=== PATIENT | female | born 1945 | race Caucasian/White ===

== ENCOUNTER 2023-06-03 07:05 | Day surgery (SDC) | payer MEDICARE ==
[2023-05-26 15:31] LABS: BASOPHILS # (AUTO) 0.1 X10'3 (0-0.2); BASOPHILS % (AUTO) 0.8 % (0-1); EOSINOPHILS # (AUTO) 0.1 X10'3 (0-0.9); EOSINOPHILS % (AUTO) 0.9 % (0-6); LYMPHOCYTES # (AUTO) 2.1 X10'3 (1.1-4.8); LYMPHOCYTES % (AUTO) 22.4 % (21-51); MEAN CORPUSCULAR HEMOGLOBIN 32.6 PG (27.0-31.0); MEAN CORPUSCULAR HGB CONC 34.3 g/dL (33.0-36.5); MEAN CORPUSCULAR VOLUME 95.1 FL (78-98); MEAN PLATELET VOLUME 8.1 FL (7.4-10.4); MONOCYTES # (AUTO) 0.8 X10'3 (0-0.9); MONOCYTES % (AUTO) 7.9 % (2-12); NEUTROPHILS # (AUTO) 6.5 X10'3 (1.8-7.7); PRE OP HEMATOCRIT 41.8 % (35.0-45.0); PRE OP HEMOGLOBIN 14.3 g/dL (12.0-16.0); PRE OP PLATELET COUNT 218 X10'3 (140-440); PRE OP WHITE BLOOD COUNT 9.6 10'3 (4.8-10.8); RED BLOOD COUNT 4.39 X10'6 (4.20-5.60); RED CELL DISTRIBUTION WIDTH 13.4 % (11.5-14.5)
[2023-05-26 15:58] LABS: ALBUMIN 3.1 G/DL (3.4-5.0); ALBUMIN/GLOBULIN RATIO 0.6 (1.1-1.5); ALKALINE PHOSPHATASE 67 IU/L (46-116); BLOOD UREA NITROGEN 21 MG/DL (7-18); BUN/CREATININE RATIO 22.3 (10.0-20.0); CALCIUM 8.9 MG/DL (8.5-10.1); CHLORIDE 103 MMOL/L (99-107); CREATININE 0.94 MG/DL (0.40-0.90); PRE OP ALT 19 U/L (30-65); PRE OP ANION GAP 12 (8-16); PRE OP AST 20 U/L (10-37); PRE OP BILIRUB, TOTAL 0.4 MG/DL (0.0-1.0); PRE OP GLUCOSE 133 MG/DL (70-104); PRE OP POTASSIUM 3.6 MMOL/L (3.4-5.1); PRE OP SODIUM 137 MMOL/L (135-145); TOTAL CARBON DIOXIDE 22.5 MMOL/L (24-32); eGFR 58 ML/MIN
[~2023-06-03] VITALS: Ht 167.6 cm; Wt 64.0 kg
[2023-06-03] VITALS (7 sets, daily range): BP systolic 132–187; BP diastolic 79–110; PULSE 81–113; RESP 9–17; TEMP 98; O2SAT 94–98
[~2023-06-03 07:05] MED LIST: ALPR0.255 PO; AMLO2.5T5 PO; CALCIUM/MAG; ESTR1TAB PO; FLUT16SP26 BOTHNARES; NICO1PAT40 TOP; OMEGA 3; VIT D3
[2023-06-03] MEDS: ringers solution, lacted 1,000 ML IV SCH (08:07)
[2023-06-03] MEDS: famotidine 20mg tablet PO ONE (08:07)
[2023-06-03] MEDS ORDERED: midazolam 1 mg/ML 2ml injection ONE (09:37)
[2023-06-03] MEDS ORDERED: fentaNYL/PF 50MCG/1 ML 2ML syringe ONE (09:37)
[2023-06-03] MEDS ORDERED: propofol inj 20 ML IV ONE (09:37)
[2023-06-03] MEDS ORDERED: rocuronium 10mg/ml inj IV ONE (09:37)
[2023-06-03] MEDS ORDERED: sevoflurane 250ml liquid IH ONE (09:39)
[2023-06-03] MEDS ORDERED: ondansetron/PF 4mg/2ml inj IV PRN (09:40)
[2023-06-03] MEDS ORDERED: meperidine/PF 25mg/ml syringe IV PRN ×3 (09:40)
[2023-06-03] MEDS ORDERED: morphine 2 MG/ML inj. syringe IV PRN (09:40)
[2023-06-03] MEDS ORDERED: proCHLORperazine 10 MG/2 ml inj IV PRN (09:40)
[2023-06-03] MEDS ORDERED: morphine 4 MG/ML inj SYRINge IV PRN (09:40)
[2023-06-03] MEDS ORDERED: ringers solution, lacted 1,000 ML IV SCH (09:40)
[2023-06-03] MEDS ORDERED: dexamethasone sod phosphate 4mg/ml inj. ONE (10:07)
[2023-06-03] MEDS ORDERED: ondansetron/PF 4mg/2ml inj ONE (10:38)
[2023-06-03] MEDS ORDERED: glycopyrrolate 0.2mg/ml inj ONE (10:41)
[2023-06-03] MEDS ORDERED: neostigmine methylsulfate 1 MG/ML 10ml vial ONE (10:41)
== END 2023-06-03 12:02 | disposition home or self-care (01) ==
LOC: PAS 07:05
PROVIDERS: ATTEND Internal Medicine Critical Care Medicine
DX: R91.8 Other nonspecific abnormal finding of lung field (principal); I49.3 Ventricular premature depolarization; C34.32 Malignant neoplasm of lower lobe, left bronchus or lung; C78.01 Secondary malignant neoplasm of right lung
CPT/HCPCS: 31627; 31629; 31653; 36415; 71045; 71250; 80053; 82948; 85025; 87015; 87070; 87102; 87116; 87206; 88341; 93005; 94760; J1100; J2250; J2405; J2704; J2710; J3010; J3490; J7120; Z7506; Z7508; Z7512; 31622; 31624; 31625; 31626; 31628; 31654; 88172; 88173; 88305; 88342; A4618